=== PATIENT | male | born 1940 | race Caucasian/White ===

== ENCOUNTER → 2023-04-02 10:11 | Outpatient (CLI) | payer MEDICARE, OTHER, SELFPAY ==
--- NOTE | 2023-04-02 10:30 | DI.CT.S_ITS ---
PROCEDURE: CT CHEST WO CON INDICATIONS: history of MAC, atypical inections and multiple pulmonar nod TECHNIQUE: Noncontrast 5 mm thick sections acquired from the pulmonary apices to the posterior costophrenic angles. 1 mm lung window, 5 mm thick coronal and sagittal and 7 mm axial MIP reformats were then acquired. For radiation dose reduction, the following was used: automated exposure control, adjustment of mA and/or kV according to patient size. COMPARISON: [facility], CT, CT CHEST WITHOUT CONTRAST, 05/22/2022, 15:16. [facility], CT, CT CHEST WITH CONTRAST, 03/15/2021, 11:24. [facility], CT, CT LOW DOSE LUNG CA SCREENING, 11/19/2020, 10:59. [facility], CT, CT CHEST WITHOUT CONTRAST, 07/20/2022, 10:26. FINDINGS: Image quality: Excellent. Lungs and pleura: As before, a 0.9 cm spiculated mass is present within the right upper lobe. This is unchanged from the study dated November 19, 2020. There is a new 2.0 x 1.2 cm spiculated mass within the posterior inferior aspect of the right upper lobe (series 3/image 123). The 7 mm spiculated nodule within the inferior lateral aspect of the right upper lobe is unchanged from the study dated May 22, 2022. The consolidative airspace opacities within the anterior aspect of the left upper lobe have markedly decreased in extent when compared with the prior study. Postinflammatory residua now remains in that region. There is moderate centrilobular emphysema and multifocal pulmonary scarring, as before. No pleural effusion or pneumothorax. Mediastinum: Heart size is normal. No pericardial effusion. No mediastinal adenopathy by size criteria. Thoracic aorta and central pulmonary arteries are normal in size. Scattered atheromatous calcifications are present within the aortic arch. Esophagus is normal in caliber. No hiatal hernia. Bones and chest wall: No suspicious bony lesions. No vertebral body compression fractures. No axillary or supraclavicular adenopathy by size criteria. Thyroid gland is unremarkable . Abdomen: Visualized upper abdominal solid organs and bowel loops appear normal in the absence of contrast. IMPRESSION: 1. New spiculated nodule within the right upper lobe when compared with the CT dated July 20, 2022. Finding is suspicious for a new focus of infection although neoplasm cannot be excluded. 3-6 month follow-up recommended. 2. Near complete resolution of the consolidative airspace opacities in the left upper lobe. 3. Other nodules are stable when compared with the prior studies. Dictated by: Carly Cueto M.D. on 04/02/2023 at 10:44 Approved by: Carly Cueto M.D. on 04/02/2023 at 13:36
== END ==
PROVIDERS: PCP Family Medicine; Referring Provider Internal Medicine; Visit Provider Internal Medicine
DX: Z01.811 Encounter for preprocedural respiratory examination (principal); R91.8 Other nonspecific abnormal finding of lung field; J44.9 Chronic obstructive pulmonary disease, unspecified; B37.0 Candidal stomatitis
CPT/HCPCS: 71250

== ENCOUNTER → 2023-11-26 14:41 | Outpatient (CLI) | payer MEDICARE, OTHER, SELFPAY ==
--- NOTE | 2023-11-26 14:42 | DI.CT.S_ITS ---
PROCEDURE: CT CHEST WO CON INDICATIONS: history of MAC, atypical inections and multiple pulmonary nodules TECHNIQUE: Noncontrast 5 mm thick sections acquired from the pulmonary apices to the posterior costophrenic angles. 1 mm lung window, 5 mm thick coronal and sagittal and 7 mm axial MIP reformats were then acquired. For radiation dose reduction, the following was used: automated exposure control, adjustment of mA and/or kV according to patient size. COMPARISON: [facility], CT, CT CHEST WITH CONTRAST, 03/15/2021, 11:24. [facility], CT, CT CHEST WO CON, 04/02/2023, 10:25. FINDINGS: Image quality: Diagnostic. Lower Neck: No enlarged lymph nodes. Thyroid: No thyroid nodules which require sonographic follow up, per consensus guidelines. Axillae: No enlarged lymph nodes. Chest Wall: Unremarkable. Bones: Unremarkable. Lungs and Pleura: No pneumothorax or pleural effusions. There is a pulmonary nodule within the right upper lobe with spiculated margins that is unchanged from the study dated March 15, 2021. There is severe emphysematous changes with an apical predominance. A pulmonary nodule is present within the posterior inferior right upper lobe with tethering of the adjacent horizontal fissure which measures 0.8 cm in diameter and is unchanged from the study dated April 02, 2023. Heart: Heart size is normal. No pericardial effusion. Thoracic Vessels: The aorta and pulmonary arteries demonstrate normal size. Scattered atheromatous calcifications are present within the aortic arch. Mediastinum and Krysten: No enlarged lymph nodes. Esophagus: No wall thickening. There is a small hiatal hernia. Upper Abdomen: Visualized upper abdomen solid organs and bowel loops appear normal. IMPRESSION: 1. Stable right upper lobe pulmonary nodules when compared with the prior studies. 2. No suspicious pulmonary nodules. Dictated by: Carly Cueto M.D. on 11/26/2023 at 16:37 Approved by: Carly Cueto M.D. on 11/26/2023 at 16:43
== END ==
PROVIDERS: PCP Family Medicine; Referring Provider Internal Medicine; Visit Provider Internal Medicine
DX: R91.8 Other nonspecific abnormal finding of lung field (principal); J44.9 Chronic obstructive pulmonary disease, unspecified
CPT/HCPCS: 71250